=== PATIENT | male | born 1960 | race Asian ===

== ENCOUNTER 2017-12-07 15:49 | Inpatient (IN) | payer OTHER ==
[~2017-12-07] VITALS: Ht 162.6 cm; Wt 63.2 kg
[2017-12-07] MEDS ORDERED: IBUPROFEN 600 MG TAB PO STA (16:44)
--- NOTE | 2017-12-07 16:59 | Diagnostic Imaging Report ---
EXAMINATION: CXR 2 VIEW - HOPD INDICATION: Fluid in lung COMPARISON: None FINDINGS: TUBES and LINES: None. LUNGS: Opacity in the right lung adjacent to pleural effusion, likely atelectasis. The left lung is clear. PLEURA: There is a large right pleural effusion. Nio evidence of pneumothorax. HEART AND MEDIASTINUM: The cardiomediastinal silhouette is unremarkable. BONES AND SOFT TISSUES: No acute osseous lesion. Soft tissues are unremarkable. UPPER ABDOMEN: No free air under the diaphragm. Air filled non-specific small and large bowel loops. IMPRESSION: Large right pleural effusion with associated opacity, likely atelectasis. Follow-up chest radiograph to resolution is suggested. Signed by: Dr. Bandar Bliss MD on 12/07/2017 4:56 PM
--- NOTE | 2017-12-07 18:18 | Diagnostic Imaging Report ---
EXAMINATION: CT scan of the chest with contrast. TECHNIQUE: Helical CT images of the chest were performed from the lung apices to the level of the adrenal glands after the intravenous administration of 100 cc of Isovue 300. Coronal and sagittal reformatted images were obtained.Dose modulation, iterative reconstruction, and/or weight based adjustment of the mA/kV was utilized to reduce the radiation dose to as low as reasonably achievable. COMPARISON: None. CLINICAL HISTORY:Shortness of breath DISCUSSION: LINES/TUBES: None. LUNGS AND AIRWAYS: Right compressive atelectasis PLEURA: Large right pleural effusion. HEART AND MEDIASTINUM: The thyroid gland is normal. The heart and pericardium are within normal limits. LYMPH NODES: There is no mediastinal, hilar or axillary lymphadenopathy. ABDOMEN: Simple cyst right peripheral lobe measuring 1.2 cm. Additional smaller hypodensities. BONES AND SOFT TISSUES: No acute bony abnormalities. IMPRESSION: Large right pleural effusion with adjacent atelectasis. Signed by: Dr. Kingston Us M.D. on 12/07/2017 6:15 PM
[2017-12-07] MEDS ORDERED: SODIUM CHLORIDE FLUSH 10 ML SYR INJ PRN (18:45)
[2017-12-07] MEDS ORDERED: MORPHINE SULFATE 2 MG/ML SYR IV PRN (18:45)
[2017-12-07] MEDS ORDERED: ONDANSETRON HCL INJ 2 MG/ML VIAL IV PRN (18:45)
[2017-12-07] MEDS ORDERED: CEFTRIAXONE SOD 1 GM VIAL IV ONE (20:00)
[2017-12-07] MEDS ORDERED: CEFTRIAXONE SOD 1 GM VIAL IM ONE (20:00)
[2017-12-07 21:13] VITALS: BP 121/69
[2017-12-07 21:14] VITALS: BP 121/69
[2017-12-07] MEDS ORDERED: SODIUM CHLORIDE 0.9% 250ML 250 ML ONE (21:40)
[2017-12-07] MEDS: CEFEPIME HCL 1 GM VIAL IV SCH ×2 (21:49→21:53)
[2017-12-07] MEDS: VANCOMYCIN 1GM/NS 250 ML 250 ML IV SCH (21:49)
[2017-12-07 22:47] VITALS: BP 121/69
[2017-12-08] VITALS (7 sets, daily range): BP systolic 116–150; BP diastolic 74–80
[2017-12-08] MEDS: CEFEPIME HCL 1 GM VIAL IV SCH ×3 (05:55→22:30)
[2017-12-08 05:57] LABS: BASOPHILS # (AUTO) 0.1 (0.0-0.1); BASOPHILS % 0.4 % (0.0-1.0); EOSINOPHILS # (AUTO) 0.2 (0.0-0.4); EOSINOPHILS % 1.5 % (0.0-6.0); HEMATOCRIT 37.1 % (38.2-49.6); HEMOGLOBIN 12.5 g/dL (14.0-18.0); LYMPHOCYTES # (AUTO) 0.9 (1.0-3.2); LYMPHOCYTES % 5.6 % (18.0-39.1); MEAN CORPUSCULAR HEMOGLOBIN 30.3 pg (28-32); MEAN CORPUSCULAR HGB CONC 33.7 g/dL (31-35); MEAN CORPUSCULAR VOLUME 89.8 fL (81-99); MONOCYTES # (AUTO) 1.6 (0.2-0.8); MONOCYTES % 9.8 % (4.4-11.3); NEUTROPHILS # (AUTO) 13.1 (2.1-6.9); NEUTROPHILS % 81.9 % (38.7-80.0); PLATELET COUNT 355 x10e3/uL (140-360); RED BLOOD COUNT 4.13 x10e6/uL (4.3-5.7)
[2017-12-08 06:19] LABS: ANION GAP 13.8 mmol/L (8-16); BLOOD UREA NITROGEN 14 mg/dL (7-26); BUN/CREATININE RATIO 17 (6-25); CALCIUM 8.6 mg/dL (8.4-10.2); CARBON DIOXIDE 22 mmol/L (22-29); CHLORIDE 108 mmol/L (98-107); CREATININE, SERUM 0.82 mg/dL (0.72-1.25); EST GLOMERULAR FILTRATION RATE > 60 ML/MIN (60-); GLUCOSE 155 mg/dL (74-118); POTASSIUM 3.8 mmol/L (3.5-5.1); SODIUM 140 mmol/L (136-145)
[2017-12-08 06:26] LABS: INR 1.09; PROTHROMBIN TIME 15.1 seconds (11.9-14.5)
[2017-12-08 06:27] LABS: PARTIAL THROMBOPLASTIN TIME 45.5 seconds (23.8-35.5)
[2017-12-08] MEDS ORDERED: CEFTRIAXONE SOD 1 GM VIAL IV SCH ×2 (08:45→09:00)
[2017-12-08] MEDS ORDERED: VANCOMYCIN HCL 1GM/NS 250 ML BAG IV SCH (09:00)
[2017-12-08] MEDS: VANCOMYCIN 1GM/NS 250 ML 250 ML IV SCH ×2 (09:26→19:41)
--- NOTE | 2017-12-08 09:59 | Consultation ---
DATE OF CONSULTATION: PULMONARY CRITICAL CARE CONSULTATION CHIEF COMPLAINT: Fever, congestion and abnormal x-ray. HISTORY OF PRESENT ILLNESS: The patient is a 57-year-old man. 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 He is originally from the [facility], but for the last 4 months he has been working on a ship in [employer]. The ship travels from [place] to [facility] and to the [place]. As far as he knows, does not dock in any other ports. 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 Over the past 2-3 weeks, he has noticed some fevers. He has increased congestion and some cough. He notes some mild dyspnea. He does not complain of chest pain or weight loss. He is not having any abdominal pain. He denies any nausea or vomiting. PAST SURGICAL HISTORY: The patient denies any prior surgical history. PAST MEDICAL HISTORY 1. Patient denies any prior history of pneumonia or respiratory problems. 2. The patient denies any prior history of cardiac problems. 3. He denies any prior history of exposure to tuberculosis. As far as he knows, he has never been tested for tuberculosis. SOCIAL HISTORY: The patient never smoked. He is not a drinker. He denies any exposure history. No one else on the ship has been sick. ALLERGIES: THERE ARE NO KNOWN DRUG ALLERGIES. REVIEW OF SYSTEMS: There is some fevers. He does not have headache or neck pain. He has no sore throat. There is no swollen glands. He does not complain of any chest pain. He does note some cough and congestion. He is not having any abdominal pain. He denies any leg pain or swelling. He denies any rashes. PHYSICAL EXAMINATION VITALS: The patient is afebrile. Saturation is 90% on room air. The blood pressure is 138/74 and the pulse is 77. HEENT: Shows no facial swelling or erythema. The nasal mucosa is normal. The oropharynx is normal. LYMPHATIC: Shows no submandibular, cervical or supraclavicular adenopathy. CARDIAC: Reveals a regular rate and rhythm with a normal S1 and S2. LUNGS: Auscultation of the lungs reveals decreased breath sounds on the right side. ABDOMEN: Soft and nontender. There is no rebound or guarding. EXTREMITIES: Showed shows no leg edema or calf tenderness. SKIN: Shows no rashes. NEUROLOGIC: Shows no focal abnormalities. RADIOGRAPHIC DATA: The chest CT shows a large right pleural effusion with adjacent atelectasis. IMPRESSIONS: Community-acquired pneumonia with parapneumonic effusion. PLAN 1. The patient will be treated with antibiotics for community-acquired pneumonia. 2. Ultrasound-guided thoracentesis with analysis for any empyema or spread of infection. 3. Urine antigen for legionella. 4. Blood cultures and sputum culture. 5. Continue to monitor electrolytes and white blood cell count. 6. Continue to investigate history for any additional exposures. Job#: [id number] RI
[2017-12-08] MEDS: ACETAMINOPHEN 325 MG TAB PO PRN ×2 (10:20→23:45)
[2017-12-08] MEDS: AZITHROMYCIN 500MG/NS 250 ML 250 ML IV SCH (11:29)
--- NOTE | 2017-12-08 14:51 | Diagnostic Imaging Report ---
Procedure: Ultrasound-guided right diagnostic and therapeutic thoracentesis bow making machine operator: Dr. Bandar Bliss Pre-operative diagnosis: Right pleural effusion Post-operative diagnosis: Right pleural effusion Local sedation: 10 cc of 1% subcutaneous lidocaine Estimated blood loss: Minimal Specimens: 500 cc cloudy serous pleural fluid Implants: None DISCUSSION: Informed consent was obtained from the patient and documented in the medical record. The patient was placed in the left lateral decubitus position. The right posterior chest was prepped and draped in standard sterile fashion. 1% lidocaine was infiltrated into the skin and subcutaneous tissues for local anesthesia. Then under sonographic guidance, a 5 Fr catheter was advanced into the right pleural space. The catheter was advanced off the needle and connected to vacuum bottle with subsequent evacuation of 500 cc of cloudy serous fluid. The catheter was removed and a sterile, occlusive dressing was applied. Sample was sent to the lab. The patient tolerated the procedure well. FINDINGS: Moderate right pleural effusion with some septations, suggesting complexity. IMPRESSION: Ultrasound-guided right thoracentesis with evacuation of 500 cc of cloudy serous fluid. Signed by: Dr. Bandar Bliss MD on 12/08/2017 2:47 PM
--- NOTE | 2017-12-08 14:51 | Diagnostic Imaging Report ---
Procedure: Ultrasound-guided right diagnostic and therapeutic thoracentesis component prep operator: Dr. Bandar Bliss Pre-operative diagnosis: Right pleural effusion Post-operative diagnosis: Right pleural effusion Local sedation: 10 cc of 1% subcutaneous lidocaine Estimated blood loss: Minimal Specimens: 500 cc cloudy serous pleural fluid Implants: None DISCUSSION: Informed consent was obtained from the patient and documented in the medical record. The patient was placed in the left lateral decubitus position. The right posterior chest was prepped and draped in standard sterile fashion. 1% lidocaine was infiltrated into the skin and subcutaneous tissues for local anesthesia. Then under sonographic guidance, a 5 Fr catheter was advanced into the right pleural space. The catheter was advanced off the needle and connected to vacuum bottle with subsequent evacuation of 500 cc of cloudy serous fluid. The catheter was removed and a sterile, occlusive dressing was applied. Sample was sent to the lab. The patient tolerated the procedure well. FINDINGS: Moderate right pleural effusion with some septations, suggesting complexity. IMPRESSION: Ultrasound-guided right thoracentesis with evacuation of 500 cc of cloudy serous fluid. Signed by: Dr. Bandar Bliss MD on 12/08/2017 2:47 PM
[2017-12-08 15:25] LABS: BODY FLUID APPEARANCE CLOUDY; BODY FLUID COLOR RED; BODY FLUID TYPE PLEURAL
[2017-12-08 15:26] LABS: RBC,BODY FLUID 1436 cells/uL; WBC,BODY FLUID 174 cells/uL
--- NOTE | 2017-12-08 15:30 | Diagnostic Imaging Report ---
EXAMINATION: CHEST SINGLE (PORTABLE) INDICATION: \S\post thoracentesis \S\[id number] \S\1445 \S\N COMPARISON: Chest radiograph 12/07/[address] chest 12/07/2017 FINDINGS: AP view TUBES and LINES: None. LUNGS: Lungs are well inflated. Interval thoracentesis with decreased size of the right pleural effusion, now small. Unchanged right lower lobe consolidation likely due to atelectasis when compared to prior CT. PLEURA: No pleural effusion or pneumothorax. HEART AND MEDIASTINUM: The cardiomediastinal silhouette is unremarkable.. BONES AND SOFT TISSUES: No acute osseous lesion. Soft tissues are unremarkable. UPPER ABDOMEN: No free air under the diaphragm. IMPRESSION: Interval thoracentesis with decrease size now small of the right pleural effusion. No pneumothorax. Signed by: Dr. Loli Hitchcock M.D. on 12/08/2017 3:26 PM
[2017-12-08 16:07] LABS: EOSINOPHILS,BODY FLUID 4 %; LYMPHOCYTES,BODY FLUID 15 %; MONO/MACROPHG,BODY FLUID 9 %; NEUTROPHILS,BODY FLUID 72 %
[2017-12-08] MEDS ORDERED: MORPHINE SULFATE INJ 4 MG/ML INJ IV PRN (16:30)
[2017-12-08] MEDS: FAMOTIDINE 20 MG/2 ML VIAL IV SCH (17:10)
--- NOTE | 2017-12-08 17:42 | History and Physical ---
CHIEF COMPLAINT: Shortness of breath and cough, right back pain. 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 Now developing shortness of breath and right-sided back pain with cough since November 23 of this year. Symptoms have worsened progressively and now shortness of breath has worsened to the point where he is having significant difficulty breathing. He also has subjective fever. He is brought to urgent care facility and found to have right pleural effusion and was sent to the hospital here for further evaluation and management. He underwent a thoracentesis and he feels better. He is less short of breath. He has no history of pneumonia and no history of any similar pathology. PAST MEDICAL HISTORY: Cigarette use, quitting about 3 years ago. PAST SURGICAL HISTORY: None. ALLERGIES: PER ELECTRONIC MEDICAL RECORDS. FAMILY, SOCIAL HISTORY: The patient is . He has 3 children. He cigarettes about 3 years ago. No alcohol or illicits. 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 MEDICATIONS: Per electronic medical records. REVIEW OF SYSTEMS: Denies any dizziness or chest pain. He denies any nausea, vomiting or diarrhea. Denies any headache or back pain at this time. Denies any leg pain. PHYSICAL EXAMINATION VITAL SIGNS: Reviewed. GENERAL APPEARANCE: A tired-appearing man resting in the bed. HEENT: Anicteric. Pupils responsive to light. No oral lesions. CARDIOVASCULAR: Normal S1 and S2. LUNGS: Reduced breath sounds in the right lung, minimal crackles. He has left lung with good breath sounds. ABDOMEN: Soft and nontender. Nondistended. EXTREMITIES: There is no edema or calf tenderness. NEUROLOGIC: Alert and oriented x3. Moving all extremities. SKIN: Dry. PSYCHIATRIC: Normal affect. LABS: Reviewed. MEDICATIONS: Reviewed. ASSESSMENT: This is a 57-year-old man. 1. Sepsis. 2. Right pleural effusion, status post thoracentesis. 3. Normocytic anemia. 4. History of cigarette use. PLAN: 1. He is status post thoracentesis. Will follow up. 2. Continue with antibiotics. He is on vancomycin, cefepime and Azithromycin. 3. Possible discharge tomorrow with antibiotics, but he can be transitioned to his hometown and follow up cultures and studies of the pleural fluid. 4. Will use Pepcid for GI prophylaxis and SCDs for deep venous thrombosis prophylaxis. 5. Will follow up pleural fluid studies. Job#: [id number] NEMO
[2017-12-09 00:29] VITALS: BP 145/78
[2017-12-09 06:15] LABS: BASOPHILS # (AUTO) 0.1 (0.0-0.1); BASOPHILS % 0.4 % (0.0-1.0); EOSINOPHILS # (AUTO) 0.2 (0.0-0.4); EOSINOPHILS % 1.4 % (0.0-6.0); HEMATOCRIT 37.7 % (38.2-49.6); HEMOGLOBIN 12.7 g/dL (14.0-18.0); LYMPHOCYTES # (AUTO) 1.6 (1.0-3.2); LYMPHOCYTES % 11.2 % (18.0-39.1); MEAN CORPUSCULAR HEMOGLOBIN 30.1 pg (28-32); MEAN CORPUSCULAR HGB CONC 33.7 g/dL (31-35); MEAN CORPUSCULAR VOLUME 89.3 fL (81-99); MONOCYTES # (AUTO) 1.7 (0.2-0.8); MONOCYTES % 11.6 % (4.4-11.3); NEUTROPHILS # (AUTO) 10.9 (2.1-6.9); NEUTROPHILS % 74.6 % (38.7-80.0); PLATELET COUNT 361 x10e3/uL (140-360); RED BLOOD COUNT 4.22 x10e6/uL (4.3-5.7); RED CELL DISTRIBUTION WIDTH 11.9 % (11.7-14.4)
[2017-12-09 06:38] LABS: ALANINE AMINOTRANSFERASE 101 IU/L (0-55); ALBUMIN 2.4 g/dL (3.5-5.0); ALBUMIN/GLOBULIN RATIO 0.6 (0.8-2.0); ALKALINE PHOSPHATASE 105 IU/L (40-150); ANION GAP 15.8 mmol/L (8-16); BLOOD UREA NITROGEN 11 mg/dL (7-26); BUN/CREATININE RATIO 13 (6-25); CARBON DIOXIDE 22 mmol/L (22-29); CHLORIDE 107 mmol/L (98-107); CREATININE, SERUM 0.88 mg/dL (0.72-1.25); EST GLOMERULAR FILTRATION RATE > 60 ML/MIN (60-); GLUCOSE 109 mg/dL (74-118); POTASSIUM 3.8 mmol/L (3.5-5.1); SODIUM 141 mmol/L (136-145)
[2017-12-09 08:00] VITALS: BP 133/86
[2017-12-09 08:10] VITALS: BP 133/86
[2017-12-09] MEDS: ACETAMINOPHEN 325 MG TAB PO PRN ×2 (08:38→15:59)
[2017-12-09] MEDS: FAMOTIDINE 20 MG/2 ML VIAL IV SCH ×2 (08:38→17:35)
[2017-12-09] MEDS: AZITHROMYCIN 500MG/NS 250 ML 250 ML IV SCH (08:38)
[2017-12-09] MEDS: VANCOMYCIN 1GM/NS 250 ML 250 ML IV SCH ×2 (09:00→21:30)
[2017-12-09] MEDS: CEFEPIME HCL 1 GM VIAL IV SCH ×2 (11:00→23:00)
[2017-12-09 12:47] VITALS: BP 116/79
[2017-12-09 17:03] VITALS: BP 147/87
[2017-12-09 20:00] VITALS: BP 133/74
[2017-12-09] MEDS ORDERED: SODIUM CHLORIDE 0.9% 250ML 250 ML ONE (20:02)
[2017-12-09] MEDS ORDERED: SODIUM CHLORIDE 0.9% 50ML 50 ML ONE (23:39)
[2017-12-10] VITALS (7 sets, daily range): BP systolic 122–156; BP diastolic 72–95
[2017-12-10] MEDS: ACETAMINOPHEN 325 MG TAB PO PRN ×3 (00:10→18:08)
[2017-12-10 06:14] LABS: BASOPHILS # (AUTO) 0.1 (0.0-0.1); BASOPHILS % 0.7 % (0.0-1.0); EOSINOPHILS # (AUTO) 0.3 (0.0-0.4); EOSINOPHILS % 1.8 % (0.0-6.0); HEMATOCRIT 35.9 % (38.2-49.6); HEMOGLOBIN 12.1 g/dL (14.0-18.0); LYMPHOCYTES # (AUTO) 1.6 (1.0-3.2); LYMPHOCYTES % 11.5 % (18.0-39.1); MEAN CORPUSCULAR HEMOGLOBIN 29.8 pg (28-32); MEAN CORPUSCULAR HGB CONC 33.7 g/dL (31-35); MEAN CORPUSCULAR VOLUME 88.4 fL (81-99); MONOCYTES # (AUTO) 1.4 (0.2-0.8); MONOCYTES % 10.5 % (4.4-11.3); NEUTROPHILS # (AUTO) 10.2 (2.1-6.9); NEUTROPHILS % 74.6 % (38.7-80.0); PLATELET COUNT 365 x10e3/uL (140-360); RED BLOOD COUNT 4.06 x10e6/uL (4.3-5.7); RED CELL DISTRIBUTION WIDTH 12.1 % (11.7-14.4)
[2017-12-10 06:45] LABS: ALANINE AMINOTRANSFERASE 101 IU/L (0-55); ALBUMIN 2.3 g/dL (3.5-5.0); ALBUMIN/GLOBULIN RATIO 0.6 (0.8-2.0); ALKALINE PHOSPHATASE 119 IU/L (40-150); ANION GAP 16.2 mmol/L (8-16); BLOOD UREA NITROGEN 8 mg/dL (7-26); BUN/CREATININE RATIO 9 (6-25); CALCIUM 8.9 mg/dL (8.4-10.2); CARBON DIOXIDE 23 mmol/L (22-29); CHLORIDE 106 mmol/L (98-107); CREATININE, SERUM 0.88 mg/dL (0.72-1.25); EST GLOMERULAR FILTRATION RATE > 60 ML/MIN (60-); GLUCOSE 108 mg/dL (74-118); POTASSIUM 4.2 mmol/L (3.5-5.1); SODIUM 141 mmol/L (136-145)
--- NOTE | 2017-12-10 06:59 | Progress Note ---
DATE: December 09, 2017 TIME: 8:00 a.m. OVERNIGHT: Feeling little better. REVIEW OF SYSTEMS: Denies any dizziness or chest pain. PHYSICAL EXAMINATION VITAL SIGNS: Reviewed. GENERAL: A tired-appearing man, resting in bed. HEENT: Anicteric. CARDIOVASCULAR: Normal S1 and S2. LUNGS: He has good aeration. Minimal crackles at the bases. ABDOMEN: Soft and nontender. EXTREMITIES: No edema. SKIN: Dry. PSYCHIATRIC: Normal affect. LABS: Reviewed. MEDICATIONS: Reviewed. ASSESSMENT: A 57-year-old man with: 1. Sepsis. 2. Right-sided exudative effusion, status post thoracentesis. 3. Normocytic anemia. 4. History of cigarette use. PLAN 1. Continue broad-spectrum antibiotics. 2. Light's criteria reveals patient has underlying exudative effusion. 3. Followup cultures and continue broad-spectrum antibiotics. 4. I have discussed case with Dr. Still. Plan is to repeat CT scan on Monday and observe for any fevers or leukocytosis. 5. Check TSH and PSA. 6. We doubt patient has TB. 7. We will continue with treatment and follow up. Job#: [id number] VAS
[2017-12-10] MEDS: AZITHROMYCIN 500MG/NS 250 ML 250 ML IV SCH (08:50)
[2017-12-10] MEDS: FAMOTIDINE 20 MG/2 ML VIAL IV SCH ×2 (08:51→16:57)
[2017-12-10] MEDS: VANCOMYCIN 1GM/NS 250 ML 250 ML IV SCH ×2 (10:55→21:16)
[2017-12-10] MEDS: CEFEPIME HCL 1 GM VIAL IV SCH ×2 (10:55→22:51)
--- NOTE | 2017-12-10 13:32 | Progress Note ---
DATE: December 10, 2017 TIME: 12:00 noon. OVERNIGHT: No acute events. Febrile episode noted overnight. REVIEW OF SYSTEMS: Patient denies dizziness, fever, chills, sweats, nausea, vomiting, diarrhea, constipation, leg pain, or blurry vision. Reports right-sided chest pain with deep inspiration without shortness of breath. Reports nonproductive cough. PHYSICAL EXAMINATION VITAL SIGNS: Temperature 98.9, pulse 77, R 16, BP 156/95, SpO2 95% to 92% on room air. GENERAL APPEARANCE: This is a tired-appearing man, sitting on the side of bed. HEENT: Normocephalic, pale ocular mucosa, nares patent, trachea midline. CV: S1 and S2 without extra cardiac sounds. LUNGS: Bilateral breath sounds clear with scant diminishment at right middle lobe. Mild crackles noted posterior bases. ABDOMEN: Soft, not tender, not distended. EXTREMITIES: Without edema. SKIN: Dry. PSYCHIATRIC: Normal affect. LABS: WBCs this a.m. are 13.71, H and H 12.1/35.9, platelets 365. Na 141, K 4.2, Cl 106, CO2 of 23, gap 16.2, BUN 8 and creatinine , GFR greater than 16. Followup blood cultures are pending. MEDICATIONS 1. P.r.n. Tylenol. 2. Vancomycin IV 1 gram b.i.d. 3. Cefepime 1 gram q.12 hours IV. 4. IV Pepcid 20 mg. 5. IV azithromycin q.24 hours. 6. P.r.n. morphine sulfate. 7. P.r.n. Zofran. ASSESSMENT AND PLAN: This is a 57-year-old man with: 1. Sepsis. Continue broad-spectrum antibiotics. 2. Right-sided exudative effusion, status post thoracentesis on 12/08/2017 with removal of approximately 500 mL of cloudy fluid. Repeat CT scan planned for Monday per notes. Continue to monitor and treat with IV antibiotics as the patient did have a fever episode overnight with continued leukocytosis. 3. Normocytic anemia. Follow up values in a.m. 4. History of cigarette abuse. Outpatient counseling. 5. Prophylaxis, Pepcid. Patient able to ambulate. DISPOSITION: As above. Continue IV antibiotics and supportive care. TSH 1.28 with PSA pending. Investigate results of urine legionella test. Dictated by: Charu Sin NP Job#: [id number] ADOLFO
[2017-12-10] MEDS ORDERED: SODIUM CHLORIDE 0.9% 50ML 50 ML ONE (22:10)
[2017-12-11] VITALS (7 sets, daily range): BP systolic 119–146; BP diastolic 69–89
[2017-12-11] MEDS: ACETAMINOPHEN 325 MG TAB PO PRN ×2 (00:28→09:55)
[2017-12-11 06:00] LABS: BASOPHILS # (AUTO) 0.1 (0.0-0.1); BASOPHILS % 0.6 % (0.0-1.0); EOSINOPHILS # (AUTO) 0.4 (0.0-0.4); EOSINOPHILS % 2.5 % (0.0-6.0); HEMATOCRIT 35.9 % (38.2-49.6); HEMOGLOBIN 12.2 g/dL (14.0-18.0); LYMPHOCYTES # (AUTO) 1.5 (1.0-3.2); LYMPHOCYTES % 11.1 % (18.0-39.1); MEAN CORPUSCULAR HEMOGLOBIN 29.9 pg (28-32); MONOCYTES # (AUTO) 1.6 (0.2-0.8); MONOCYTES % 11.2 % (4.4-11.3); NEUTROPHILS # (AUTO) 10.2 (2.1-6.9); NEUTROPHILS % 73.9 % (38.7-80.0); PLATELET COUNT 392 x10e3/uL (140-360); RED BLOOD COUNT 4.08 x10e6/uL (4.3-5.7)
[2017-12-11 06:28] LABS: ALANINE AMINOTRANSFERASE 112 IU/L (0-55); ALBUMIN 2.3 g/dL (3.5-5.0); ALBUMIN/GLOBULIN RATIO 0.6 (0.8-2.0); ALKALINE PHOSPHATASE 130 IU/L (40-150); ANION GAP 14.3 mmol/L (8-16); BLOOD UREA NITROGEN 7 mg/dL (7-26); BUN/CREATININE RATIO 8 (6-25); CALCIUM 9.1 mg/dL (8.4-10.2); CARBON DIOXIDE 24 mmol/L (22-29); CHLORIDE 106 mmol/L (98-107); CREATININE, SERUM 0.89 mg/dL (0.72-1.25); EST GLOMERULAR FILTRATION RATE > 60 ML/MIN (60-); GLUCOSE 108 mg/dL (74-118); POTASSIUM 4.3 mmol/L (3.5-5.1); SODIUM 140 mmol/L (136-145)
--- NOTE | 2017-12-11 07:32 | Diagnostic Imaging Report ---
PROCEDURE: X-RAY CHEST, TWO VIEWS COMPARISON: 12/08/2017, CT scan of the chest 12/07/2017. INDICATIONS: SOB, EFFUSION FINDINGS: Interval increase in size of now moderate right pleural effusion with probable passive atelectasis of the lower and middle lobes. Left lung remains clear. Cardiomediastinal contour is notable for prominence of the azygos venous interface shown to represent loculation of paramediastinal pleural fluid on the comparison CT scan of the chest are no overt pulmonary edema. No acute osseous abnormality. CONCLUSION: Interval reaccumulation of now moderate right pleural effusion relative to post thoracentesis chest radiograph 12/08/2017. Dictated by: Brant Richardson M.D. on 12/11/2017 at 7:41 Electronically approved by: Brant Richardson M.D. on 12/11/2017 at 7:41
[2017-12-11] MEDS: FAMOTIDINE 20 MG/2 ML VIAL IV SCH ×2 (09:55→18:24)
[2017-12-11] MEDS: AZITHROMYCIN 500MG/NS 250 ML 250 ML IV SCH (09:55)
[2017-12-11] MEDS: CEFEPIME HCL 1 GM VIAL IV SCH ×2 (09:55→21:11)
[2017-12-11] MEDS ORDERED: VANCOMYCIN 1GM/NS 250 ML 250 ML IV SCH (10:00)
[2017-12-11 11:02] LABS: EOSINOPHILS % (MANUAL) 2 % (0-7); LYMPHOCYTES % (MANUAL) 13 % (19-48); MONOCYTES % (MANUAL) 9 % (3.4-9.0); NEUTROPHILS % (MANUAL) 76 % (40-74)
[2017-12-11 11:03] LABS: ANISOCYTOSIS SLIGHT; PLATELET ESTIMATE SLIGHTLY INCREASED; PLATELET MORPHOLOGY COMMENT NORMAL; RBC MORPHOLOGY COMMENT NORMAL
[2017-12-11] MEDS ORDERED: SODIUM CHLORIDE 0.9% IV SCH (11:15)
[2017-12-11] MEDS ORDERED: VANCOMYCIN HCL IV SCH (11:15)
[2017-12-11] MEDS: VANCOMYCIN HCL 1.5 GM in SODIUM CHLORIDE 0.9% 250ML 300 ML IV SCH ×2 (11:45→23:15)
[2017-12-11 16:22] LABS: BODY FLUID TYPE PLEURAL
[2017-12-11 16:23] LABS: BODY FLUID APPEARANCE CLOUDY; BODY FLUID COLOR STRAW
--- NOTE | 2017-12-11 16:44 | Diagnostic Imaging Report ---
Examination: Single AP view of the chest. COMPARISON: Chest radiograph 12/11/2017 INDICATION: Status post thoracentesis DISCUSSION: See impression IMPRESSION: 1. Interval right thoracentesis with minimal decrease in size of multiloculated right pleural effusion. No pneumothorax. 2. Persistent multifocal pneumonia in the right lung. Signed by: Dr. Brant Richardson M.D. on 12/11/2017 4:41 PM
--- NOTE | 2017-12-11 16:47 | Diagnostic Imaging Report ---
Date and Time: Procedure: Ultrasound-guided right thoracentesis hardboard coating machine operator: Dr. Richardson Pre-operative diagnosis: Right pleural effusion Post-operative diagnosis: Multiloculated right pleural effusion Conscious Sedation: None The patient's heart rate and pulse oximetry were continuously monitored by the interventional radiology nurse. Blood pressure was monitored at 5 minute intervals. Additional Medications: Lidocaine 1% for local anesthesia Fluoroscopy time: 0 Dose-area Product: 0 mGycm2. Frontal Air Kerma: 0 Contrast used: 0 Estimated blood loss: Minimal Specimens: 50 cc serous fluid Implants: None DISCUSSION: Informed consent was obtained and documented in the medical record. Patient was placed in the left lateral decubitus position. The right chest wall was prepped and draped in standard sterile fashion. A suitable percutaneous approach to the multiloculated right pleural effusion was identified and 1% lidocaine was infiltrated into the skin and subcutaneous tissues for local anesthesia. Then under continuous sonographic guidance, a 5 [place] Fur and Maskeh needle catheter was advanced into the pleural space. The needle was removed and the catheter was connected to vacuum bottle with subsequent aspiration of 50 cc lainey-colored fluid. The needle was removed and a final sonographic image was obtained. A sterile dressing was applied. The patient tolerated the procedure well without immediate complication. FINDINGS: Multiloculated parapneumonic right pleural effusion. IMPRESSION: Successful ultrasound-guided diagnostic right thoracentesis with evacuation of 50 cc lainey-colored fluid. Specimen was submitted for laboratory analysis as requested by the referring clinical team. Aspirated fluid was not frankly purulent, arguing against presence of empyema. Postprocedure chest radiograph was requested. Signed by: Dr. Brant Richardson M.D. on 12/11/2017 4:44 PM
[2017-12-11 17:32] LABS: RBC,BODY FLUID 6014 cells/uL; WBC,BODY FLUID 173 cells/uL
[2017-12-11 17:36] LABS: LYMPHOCYTES,BODY FLUID 6 %; MONO/MACROPHG,BODY FLUID 1 %; NEUTROPHILS,BODY FLUID 93 %
[2017-12-12] VITALS (8 sets, daily range): BP systolic 114–147; BP diastolic 73–90
[2017-12-12 05:10] LABS: BASOPHILS # (AUTO) 0.1 (0.0-0.1); BASOPHILS % 0.7 % (0.0-1.0); EOSINOPHILS # (AUTO) 0.4 (0.0-0.4); HEMATOCRIT 38.3 % (38.2-49.6); HEMOGLOBIN 12.7 g/dL (14.0-18.0); LYMPHOCYTES # (AUTO) 1.7 (1.0-3.2); LYMPHOCYTES % 13.3 % (18.0-39.1); MEAN CORPUSCULAR HEMOGLOBIN 29.8 pg (28-32); MEAN CORPUSCULAR HGB CONC 33.2 g/dL (31-35); MEAN CORPUSCULAR VOLUME 89.9 fL (81-99); MONOCYTES # (AUTO) 1.3 (0.2-0.8); MONOCYTES % 10.1 % (4.4-11.3); NEUTROPHILS # (AUTO) 9.5 (2.1-6.9); NEUTROPHILS % 72.1 % (38.7-80.0); PLATELET COUNT 458 x10e3/uL (140-360); RED BLOOD COUNT 4.26 x10e6/uL (4.3-5.7); RED CELL DISTRIBUTION WIDTH 12.1 % (11.7-14.4)
[2017-12-12 05:43] LABS: ALANINE AMINOTRANSFERASE 191 IU/L (0-55); ALBUMIN 2.3 g/dL (3.5-5.0); ALBUMIN/GLOBULIN RATIO 0.6 (0.8-2.0); ALKALINE PHOSPHATASE 173 IU/L (40-150); ANION GAP 16.2 mmol/L (8-16); BLOOD UREA NITROGEN 7 mg/dL (7-26); BUN/CREATININE RATIO 7 (6-25); CALCIUM 9.1 mg/dL (8.4-10.2); CARBON DIOXIDE 24 mmol/L (22-29); CHLORIDE 104 mmol/L (98-107); CREATININE, SERUM 0.95 mg/dL (0.72-1.25); EST GLOMERULAR FILTRATION RATE > 60 ML/MIN (60-); GLUCOSE 104 mg/dL (74-118); POTASSIUM 4.2 mmol/L (3.5-5.1); SODIUM 140 mmol/L (136-145)
[2017-12-12] MEDS ORDERED: SODIUM CHLORIDE 0.9% 250ML 250 ML ONE (08:24)
[2017-12-12] MEDS: AZITHROMYCIN 500MG/NS 250 ML 250 ML IV SCH (08:31)
[2017-12-12] MEDS: FAMOTIDINE 20 MG/2 ML VIAL IV SCH ×2 (08:31→16:41)
[2017-12-12] MEDS: CEFEPIME HCL 1 GM VIAL IV SCH ×2 (09:43→22:00)
[2017-12-12] MEDS: ACETAMINOPHEN 325 MG TAB PO PRN (09:53)
[2017-12-12] MEDS: VANCOMYCIN HCL 1.5 GM in SODIUM CHLORIDE 0.9% 250ML 300 ML IV SCH ×3 (11:15)
--- OUTSIDE RECORDS SUMMARY | 2017-12-12 13:14 | XMS REPORT ---
[facility] Address Unknown Phone Unavailable Care Team Providers Care Inspecting Machine Adjuster Name Role Phone CHACORTA DE DIOS Unavailable Unavailable Problems This patient has no known problems. Allergies, Adverse Reactions, Alerts This patient has no known allergies or adverse reactions. Medications This patient has no known medications. Results Test Description Test Time Test Comments Text Results Atomic Results Result Comments THORACENTESIS/US GUIDED 2017-12-11 16:41:00 [place] [address] Patient Name: TALON COBB MR #: [id number] : 1960 Age/Sex: 57/M Req #: [id number] Adm Physician: CHACORTA DE DIOS MD Ordered by: CHACORTA DE DIOS MD Report #: [id number] Location: [facility] Room/Bed: [facility] Procedure: [id number] US/THORACENTESIS/US GUIDED Exam Date: Exam Time: REPORT STATUS: Signed Date and Time: Procedure: Ultrasound-guided right thoracentesis acid wash operator: Dr. Mcintosh Pre-operative diagnosis: Right pleural effusion Post-operative diagnosis: Multiloculated right pleural effusion Conscious Sedation: None The patient's heart rate and pulse oximetry were continuously monitored by the interventional radiology nurse. Blood pressure was monitored at 5 minute intervals. Additional Medications: Lidocaine 1% for local anesthesia Fluoroscopy time: 0 Dose- area Product: 0 mGycm2. Frontal Air Kerma: 0 Contrast used: 0 Estimated blood loss: Minimal Specimens: 50 cc serous fluid Implants: None DISCUSSION: Informed consent was obtained and documented in the medical record. Patient was placed in the left lateral decubitus position. The r [facility] chest wall was prepped and draped in standard sterile fashion. A suitable percutaneous approach to the multiloculated right pleural effusion was identified and 1% lidocaine was infiltrated into the skin and subcutaneous tissues for local anesthesia. Then under continuous sonographic guidance, a 5 [employer] needle catheter was advanced into the pleural space. The needle was removed and the catheter was connected to vacuum bottle with subsequent aspiration of 50 cc lainey-colored fluid. The needle was removed and a final sonographic image was obtained. A sterile dressing was applied. The patient tolerated the procedure well without immediate complication. FINDINGS: Multiloculated parapneumonic right pleural effusion. IMPRESSION: Successful ultrasound-guided diagnostic right thoracentesis with evacuation of 50 cc lainey-colored fluid. Specimen was submitted for laboratory analysis as requested by the referring clinical team. Aspirated fluid was not frankly purulent, arguing against presence of empyema. Postprocedure chest radiograph was requested. Signed by: Dr. Cookie Mcintosh M.D. on 12/11/2017 4:44 PM Dictated By: COOKIE MCINTOSH MD 43 Transcribed By: MARIO on 12/11/171643 COPY TO: CHACORTA DE DIOS MD CHEST XRAY POST PROCEDURE 2017-12-11 16:40:00 [place] [address] Patient Name: TALON COBB MR #: [id number] : 1960 Age/Sex: 57/M Req #: [id number] Adm Physician: CHACORTA DE DIOS MD Ordered by: COOKIE MCINTOSH MD Report #: [id number] Location: MED/SURG3 Room/Bed: [facility] Procedure: [id number] DX/CHEST XRAY POST PROCEDURE Exam Date: Exam Time: REPORT STATUS: Signed Examination: Single AP view of the chest. COMPARISON: Chest radiograph 12/11/2017 INDICATION: Status post thoracentesis DISCUSSION: See impression IMPRESSION: 1. Interval right thoracentesis with minimal decrease in size of multiloculated right pleural effusion. No pneumothorax. 2. Persistent multifocal pneumonia in the right lung. Signed by: Dr. Cookie Mcintosh M.D. on 12/11/2017 4:41 PM Dictated By: COOKIE MCINTOSH MD 40 Transcribed By: MARIO on 12/11/171640 COPY TO: COOKIE MCINTOSH MD CHEST 2 VIEWS 2017-12-11 07:41:00 [place] [address] Patient Name: TALON COBB MR #: [id number] : 1960 Age/Sex: 57/M Req #: [id number] Adm Physician: CHACORTA DE DIOS MD Ordered by: BENJI BIRCH MD Report #: [id number] Location: [facility] Room/Bed: [facility] Procedure: [id number] DX/CHEST 2 VIEWS Exam Date: Exam Time: REPORT STATUS: Signed PROCEDURE: X-RAY CHEST, TWO VIEWS COMPARISON: 12/08/2017, CT scan of the chest 12/07/2017. INDICATIONS: SOB, EFFUSION FINDINGS: Interval increase in size of now moderate right pleural effusion with probable passive atelectasis of the lower and middle lobes. Left lung remains clear. Cardiomediastinal contour is notable for prominence of the azygos venous interface shown to represent loculation of paramediastinal pleural fluid on the comparison CT scan of the chest are no overt pulmonary edema. No acute osseous abnormality. CONCLUSION: Interval reaccumulation of now moderate right pleural effusion relative to post thoracentesis chest radiograph 12/08/2017. Dictated by: Cookie Mcintosh M.D. on 12/11/2017 at 7:41 Electronically approved by: Cookie Mcintosh M.D. on 12/11/2017 at 7:41 Dictated By: COOKIE MCINTOSH MD 0 Transcribed By: JUDY on 12/11/17740 COPY TO: BENJI BIRCH MD CHEST SINGLE (PORTABLE) 2017-12-08 15:25:00 [place] [address] Patient Name: TALON COBB MR #: [id number] : 1960 Age/Sex: 57/M Req #: [id number] Adm Physician: CHACORTA DE DIOS MD Ordered by: CHACORTA DE DIOS MD Report #: [id number] Location: [facility] Room/Bed: [facility] Procedure: [id number] DX/CHEST SINGLE (PORTABLE) Exam Date: 12/08/17 Exam Time: 1445 REPORT STATUS: Signed EXAMINATION: CHEST SINGLE (PORTABLE) INDICATION: COMPARISON: Chest radiograph 12/07/[address] chest 12/07/2017 FINDINGS: AP view TUBES and LINES: None. LUNGS: Lungs are well inflated. Interval thoracentesis with decreased size of the right pleural effusion, now small. Unchanged right lower lobe consolidation likely due to atelectasis when compared to prior CT. PLEURA: No pleural effusion or pneumothorax. HEART AND MEDIASTINUM: The cardiomediastinal silhouette is unremarkable.. BONES AND SOFT TISSUES: No acute osseous lesion. Soft tissues are unremarkable. UPPER ABDOMEN: No free air under the diaphragm. IMPRESSION: Interval thoracentesis with decrease size now small of the right pleural effu alexx. No pneumothorax. Signed by: Dr. Carlos Can M.D. on 12/08/2017 3:26 PM Dictated By: CARLOS CAN MD 25 Transcribed By: MARIO on 12/08/171525 COPY TO: CHACORTA DE DIOS MD IR CONSULT 2017-12-08 14:43:00 [place] [address] Patient Name: TALON COBB MR #: [id number] : 1960 Age/Sex: 57/M Req #: [id number] Adm Physician: CHACORTA DE DIOS MD Ordered by: NALDO MANRIQUEZ MD Report #: [id number] Location: MED/SURG3 Room/Bed: [facility] Procedure: [id number] DX/IR CONSULT Exam Date: Exam Time: REPORT STATUS: Signed Procedure: Ultrasound-guided right diagnostic and therapeutic thoracentesis acid wash operator: Dr. Libby Welch Pre-operative diagnosis: Right pleural effusion Post-operative diagnosis: Right pleural effusion Local sedation: 10 cc of 1% subcutaneous lidocaine Estimated blood loss: Minimal Specimens: 500 cc cloudy serous pleural fluid Implants: None DISCUSSION: Informed consent was obtained from the patient and documented in the medical record. The patient was placed in the left lateral decubitus position. The right posterior chest was prepped and draped in standard sterile fashion. 1% lidocaine was infiltrated into the skin and subcutaneous tissues for local anesthesia. Then under sonographic guidance, a 5 Fr catheter was advanced into the right pleural space. The catheter was adva nced off the needle and connected to vacuum bottle with subsequent evacuation of 500 cc of cloudy serous fluid. The catheter was removed and a sterile, occlusive dressing was applied. Sample was sent to the lab. The patient tolerated the procedure well. FINDINGS: Moderate right pleural effusion with some septations, suggesting complexity. IMPRESSION: Ultrasound- guided right thoracentesis with evacuation of 500 cc of cloudy serous fluid. Signed by: Dr. Libby Welch MD on 12/08/2017 2:47 PM Dictated By: LIBBY WELCH MD 1447 Transcribed By: MARIO on 12/08/17 1447 COPY TO: NALDO MANRIQUEZ MD THORACENTESIS/US GUIDED 2017-12-08 14:43:00 [place] [address] Patient Name: TALON COBB MR #: [id number] : 1960 Age/Sex: 57/M Req #: [id number] Adm Physician: CHACORTA DE DIOS MD Ordered by: NALDO MANRIQUEZ MD Report #: [id number] Location: MED/SURG3 Room/Bed: [facility] Procedure: [id number] US/THORACENTESIS/US GUIDED Exam Date: 12/08/17 Exam Time: 1250 REPORT STATUS: Signed Procedure: Ultrasound-guided right diagnostic and therapeutic thoracentesis acid wash operator: Dr. Libby Welch Pre-operative diagnosis: Right pleural effusion Post-operative diagnosis: Right pleural effusion Local sedation: 10 cc of 1% subcutaneous lidocaine Estimated blood loss: Minimal Specimens: 500 cc cloudy serous pleural fluid Implants: None DISCUSSION: Informed consent was obtained from the patient and documented in the medical record. The patient was placed in the left lateral decubitus position. The right posterior chest was prepped and draped in standard sterile fashion. 1% lidocaine was infiltrated into the skin and subcutaneous tissues for local anesthesia. Then under sonographic guidance, a 5 Fr catheter was advanced into the right pleural space. The catheter was advanced off the needle and connected to vacuum bottle with subsequent evacuation of 500 cc of cloudy serous fluid. The catheter was removed and a sterile, occlusive dressing was applied. Sample was sent to the lab. The patient tolerated the procedure well. FINDINGS: Moderate right pleural effusion with some septations, suggesting complexity. IMPRESSION: Ultrasound-guided right thoracentesis with evacuation of 500 cc of cloudy serous fluid. Signed by: Dr. Libby Welch MD on 12/08/2017 2:47 PM Dictated By: LIBBY WELCH MD 1447 Transcribed By: MARIO on 12/08/17 144 COPY TO: NALDO MANRIQUEZ MD CT CHEST WITH CONTRAST-[facility] 2017-12-07 18:10:00 [place] [address] Patient Name: TALON COBB MR #: [id number] : 1960 Age/Sex: 57/M Req #: [id number] Adm Physician: Ordered by: NALDO MANRIQUEZ MD Report #: [id number] Location: [facility] Room/Bed: Procedure: [id number] [facility] Exam Date: 12/07/17 Exam Time: 1752 REPORT STATUS: Signed EXAMINATION: CT scan of the chest with contrast. TECHNIQUE: Helical CT images of the chest were performed from the lung apices to the level of the adrenal glands after the intravenous administration of 100 cc of Isovue 300. Coronal and sagittal reformatted images were obtained.Dose modulation, iterative reconstruction, and/or weight based adjustment of the mA/kV was utilized to reduce the radiation dose to as low as reasonably achievable. COMPARISON: None. CLINICAL HISTORY:Shortness of breath DISCUSSION: LINES/TUBES: None. LUNGS AND AIRWAYS: Right compressive atelectasis PLEURA: Large right pleural effusion. HEART AND MEDIASTINUM: The thyroid gland is normal. The heart and pericardium are within normal limits. LYMPH NODES: There is no mediastinal, hilar or axillary lymphadenopathy. ABDOMEN: Simple cyst right peripheral lobe measuring 1.2 cm. Additional smaller hypodensities. BONES AND SOFT TISSUES: No acute bony abnormalities. IMPRESSION: Large right pleural effusion with adjacent atelectasis. Signed by: Dr. Ingrid Tamez M.D. on 12/07/2017 6:15 PM Dictated By: INGRID TAMEZ MD 14 Transcribed By: MARIO on 12/07/171814 COPY TO: NALDO MANRIQUEZ MD CXR 2 VIEW - [facility] 2017-12-07 16:53:00 [place] [address] Patient Name: TALON COBB MR #: [id number] : 1960 Age/Sex: 57/M Req #: [id number] Adm Physician: Ordered by: NALDO MANRIQUEZ MD Report #: [id number] Location: [facility] Room/Bed: Procedure: [id number] HOPD/CXR 2 VIEW - [facility] Exam Date: 12/07/17 Exam Time: 1642 REPORT STATUS: Signed EXAMINATION: CXR 2 VIEW - [facility] INDICATION: Fluid in lung COMPARISON: None FINDINGS: TUBES and LINES: None. LUNGS: Opacity in the right lung adjacent to pleural effusion, likely atelectasis. The left lung is clear. PLEURA: There is a large right pleural effusion. Nio evidence of pneumothorax. HEART AND MEDIASTINUM: The cardiomediastinal silhouette is unremarkable. BONES AND SOFT TISSUES: No acute osseous lesion. Soft tissues are unremarkable. UPPER ABDOMEN: No free air under the diaphragm. Air filled non-specific small and large bowel loops. IMPRESSION: Large right pleural effusion with associated opacity, likely atelectasis. Follow-up chest radiograph to resolution is suggested. Signed by: Dr. Libby Welch MD on 12/07/2017 4:56 PM Dictated By: LIBBY WELCH MD 55 Transcribed By: MARIO on 12/07/171655 COPY TO: NALDO MANRIQUEZ MD
[2017-12-12] MEDS ORDERED: SODIUM CHLORIDE 0.9% 250ML 250 ML IV ONE (16:30)
[2017-12-13] VITALS (27 sets, daily range): BP systolic 101–127; BP diastolic 56–79
[2017-12-13 07:00] LABS: BASOPHILS # (AUTO) 0.1 (0.0-0.1); BASOPHILS % 0.7 % (0.0-1.0); EOSINOPHILS # (AUTO) 0.3 (0.0-0.4); EOSINOPHILS % 2.4 % (0.0-6.0); HEMATOCRIT 38.4 % (38.2-49.6); HEMOGLOBIN 12.9 g/dL (14.0-18.0); LYMPHOCYTES # (AUTO) 1.9 (1.0-3.2); LYMPHOCYTES % 14.9 % (18.0-39.1); MEAN CORPUSCULAR HEMOGLOBIN 30.1 pg (28-32); MEAN CORPUSCULAR HGB CONC 33.6 g/dL (31-35); MEAN CORPUSCULAR VOLUME 89.7 fL (81-99); MONOCYTES # (AUTO) 1.3 (0.2-0.8); MONOCYTES % 10.2 % (4.4-11.3); NEUTROPHILS # (AUTO) 8.8 (2.1-6.9); NEUTROPHILS % 70.8 % (38.7-80.0); PLATELET COUNT 501 x10e3/uL (140-360); RED BLOOD COUNT 4.28 x10e6/uL (4.3-5.7); RED CELL DISTRIBUTION WIDTH 12.1 % (11.7-14.4)
[2017-12-13 07:20] LABS: ALANINE AMINOTRANSFERASE 189 IU/L (0-55); ALBUMIN 2.5 g/dL (3.5-5.0); ALBUMIN/GLOBULIN RATIO 0.5 (0.8-2.0); ALKALINE PHOSPHATASE 208 IU/L (40-150); ANION GAP 18.9 mmol/L (8-16); BLOOD UREA NITROGEN 9 mg/dL (7-26); BUN/CREATININE RATIO 9 (6-25); CALCIUM 9.4 mg/dL (8.4-10.2); CARBON DIOXIDE 22 mmol/L (22-29); CHLORIDE 103 mmol/L (98-107); CREATININE, SERUM 0.98 mg/dL (0.72-1.25); EST GLOMERULAR FILTRATION RATE > 60 ML/MIN (60-); GLUCOSE 107 mg/dL (74-118); POTASSIUM 3.9 mmol/L (3.5-5.1); SODIUM 140 mmol/L (136-145)
[2017-12-13] MEDS: AZITHROMYCIN 500MG/NS 250 ML 250 ML IV SCH (08:16)
[2017-12-13] MEDS: FAMOTIDINE 20 MG/2 ML VIAL IV SCH ×2 (08:16→17:00)
[2017-12-13] MEDS: CEFEPIME HCL 1 GM VIAL IV SCH ×2 (09:55→21:30)
[2017-12-13] MEDS: VANCOMYCIN HCL 1.5 GM in SODIUM CHLORIDE 0.9% 250ML 300 ML IV SCH (12:20)
[2017-12-13] MEDS ORDERED: HEPARIN SOD/SOD CHLORIDE 1,000 ML ONE (13:01)
[2017-12-13] MEDS ORDERED: BACITRACIN 50,000 UNIT VIAL ONE (16:04)
[2017-12-13] MEDS ORDERED: BUPIVACAINE HCL 0.5% INJ 30 ML VIAL INJ ONE (16:19)
[2017-12-13] MEDS ORDERED: MUPIROCIN 2% OINT 22 GM TUBE ONE (16:50)
[2017-12-13 17:59] LABS: BASOPHILS # (AUTO) 0.1 (0.0-0.1); BASOPHILS % 0.6 % (0.0-1.0); EOSINOPHILS # (AUTO) 0.1 (0.0-0.4); EOSINOPHILS % 0.5 % (0.0-6.0); HEMATOCRIT 34.7 % (38.2-49.6); HEMOGLOBIN 11.4 g/dL (14.0-18.0); LYMPHOCYTES % 6.1 % (18.0-39.1); MEAN CORPUSCULAR HEMOGLOBIN 29.8 pg (28-32); MEAN CORPUSCULAR HGB CONC 32.9 g/dL (31-35); MEAN CORPUSCULAR VOLUME 90.8 fL (81-99); MONOCYTES # (AUTO) 0.6 (0.2-0.8); MONOCYTES % 3.8 % (4.4-11.3); NEUTROPHILS # (AUTO) 14.7 (2.1-6.9); NEUTROPHILS % 87.8 % (38.7-80.0); PLATELET COUNT 503 x10e3/uL (140-360); RED BLOOD COUNT 3.82 x10e6/uL (4.3-5.7); RED CELL DISTRIBUTION WIDTH 12.1 % (11.7-14.4)
[2017-12-13] MEDS ORDERED: MIDAZOLAM HCL 2 MG/2 ML VIAL ONE (18:06)
[2017-12-13] MEDS ORDERED: FENTANYL CITRATE/PF 100MCG/2 ML INJ ONE (18:06)
--- NOTE | 2017-12-13 18:18 | Diagnostic Imaging Report ---
EXAMINATION: CHEST SINGLE (PORTABLE) INDICATION: Post op/chest tube placement. ^post op cxr after chest tube placement ^[id number] ^1740 ^Y COMPARISON: Chest radiograph 12/11/2017 FINDINGS: AP view TUBES and LINES: Interval placement of 2 right-sided chest tubes. LUNGS: Lungs are well inflated. Right basilar opacity. PLEURA: Decreased loculated right pleural effusion, currently small. No left pleural effusion. A small amount of lucency in the right pleural space likely representing a component of hydropneumothorax related to chest tube placement. No left pneumothorax. HEART AND MEDIASTINUM: The cardiomediastinal silhouette is unremarkable. BONES AND SOFT TISSUES: No acute osseous lesion. Small amount subcutaneous emphysema in the right chest wall likely related to chest tube placement. Soft tissues are unremarkable. UPPER ABDOMEN: No free air under the diaphragm. IMPRESSION: 1. Interval placement of two chest tubes in the right hemithorax. 2. Decreased loculated right pleural effusion, currently small. Small amount of air within the right pleural space likely related to chest tube placement and suggesting hydropneumothorax. 3. Small amount of subcutaneous emphysema on the right chest wall. 4. Persistent right basilar opacity likely representing atelectasis or pneumonia. Signed by: DR. Reg Sanchez MD on 12/13/2017 6:15 PM
[2017-12-13 18:29] LABS: ALANINE AMINOTRANSFERASE 162 IU/L (0-55); ALBUMIN 2.1 g/dL (3.5-5.0); ALBUMIN/GLOBULIN RATIO 0.6 (0.8-2.0); ALKALINE PHOSPHATASE 169 IU/L (40-150); ANION GAP 18.6 mmol/L (8-16); BLOOD UREA NITROGEN 10 mg/dL (7-26); BUN/CREATININE RATIO 12 (6-25); CALCIUM 8.5 mg/dL (8.4-10.2); CARBON DIOXIDE 18 mmol/L (22-29); CHLORIDE 105 mmol/L (98-107); CREATININE, SERUM 0.84 mg/dL (0.72-1.25); EST GLOMERULAR FILTRATION RATE > 60 ML/MIN (60-); GLUCOSE 131 mg/dL (74-118); POTASSIUM 4.6 mmol/L (3.5-5.1); SODIUM 137 mmol/L (136-145)
[2017-12-13] MEDS ORDERED: LABETALOL HCL 5 MG/ML 20ML VIAL IV PRN (19:15)
[2017-12-13 20:02] LABS: BODY FLUID APPEARANCE CLOUDY; BODY FLUID COLOR RED; BODY FLUID TYPE PLEURAL
[2017-12-13 20:05] LABS: RBC,BODY FLUID 23320 cells/uL; WBC,BODY FLUID 31 cells/uL
[2017-12-13 21:09] LABS: LYMPHOCYTES,BODY FLUID 17 %; MONO/MACROPHG,BODY FLUID 2 %; NEUTROPHILS,BODY FLUID 81 %
[2017-12-13] MEDS: SODIUM CHLORIDE 0.9% 1000ML 1,000 ML IV SCH (21:23)
[2017-12-13] MEDS: HYDROCODONE/APAP 5MG-325MG TAB PO PRN (21:34)
[2017-12-13] MEDS ORDERED: VANCOMYCIN 1GM/NS 250 ML 500 ML ONE (23:53)
[2017-12-14] VITALS (94 sets, daily range): BP systolic 85–145; BP diastolic 51–78
[2017-12-14] MEDS: SODIUM CHLORIDE 0.9% 1000ML 1,000 ML IV SCH (06:30)
[2017-12-14] MEDS: AZITHROMYCIN 500MG/NS 250 ML 250 ML IV SCH (07:40)
[2017-12-14] MEDS: FAMOTIDINE 20 MG/2 ML VIAL IV SCH ×2 (07:40→17:10)
[2017-12-14 08:17] LABS: BASOPHILS # (AUTO) 0.1 (0.0-0.1); BASOPHILS % 0.6 % (0.0-1.0); EOSINOPHILS # (AUTO) 0.1 (0.0-0.4); EOSINOPHILS % 0.4 % (0.0-6.0); HEMATOCRIT 35.3 % (38.2-49.6); HEMOGLOBIN 11.9 g/dL (14.0-18.0); LYMPHOCYTES # (AUTO) 1.7 (1.0-3.2); LYMPHOCYTES % 10.4 % (18.0-39.1); MEAN CORPUSCULAR HEMOGLOBIN 30.6 pg (28-32); MEAN CORPUSCULAR HGB CONC 33.7 g/dL (31-35); MEAN CORPUSCULAR VOLUME 90.7 fL (81-99); MONOCYTES # (AUTO) 1.4 (0.2-0.8); MONOCYTES % 8.9 % (4.4-11.3); NEUTROPHILS # (AUTO) 12.4 (2.1-6.9); NEUTROPHILS % 78.8 % (38.7-80.0); PLATELET COUNT 525 x10e3/uL (140-360); RED BLOOD COUNT 3.89 x10e6/uL (4.3-5.7); RED CELL DISTRIBUTION WIDTH 12.3 % (11.7-14.4)
--- NOTE | 2017-12-14 08:30 | Diagnostic Imaging Report ---
PROCEDURE: A single AP view of the chest. COMPARISON: Chest radiograph 12/13/2017 FINDINGS: AP view TUBES and LINES: Two right-sided chest tubes are in unchanged position. LUNGS: Low lung volumes. Persistent patchy right basilar opacity. Mild pulmonary vascular congestion. PLEURA: Small loculated right hydropneumothorax is unchanged. No left pleural effusion. No left pneumothorax. HEART AND MEDIASTINUM: The cardiomediastinal silhouette is unremarkable. BONES AND SOFT TISSUES: No acute osseous lesion. Small amount subcutaneous emphysema in the right chest wall likely related to chest tube placement. Soft tissues are unremarkable. UPPER ABDOMEN: No free air under the diaphragm. IMPRESSION: Right sided chest tubes in place with persistent small loculated right hydropneumothorax, unchanged. Persistent right basilar opacity likely representing atelectasis or pneumonia. Dictated by: LIBBY WELCH M.D. on 12/14/2017 at 8:38 Electronically approved by: LIBBY WELCH M.D. on 12/14/2017 at 8:38
[2017-12-14 08:46] LABS: ALANINE AMINOTRANSFERASE 143 IU/L (0-55); ALBUMIN 1.9 g/dL (3.5-5.0); ALBUMIN/GLOBULIN RATIO 0.5 (0.8-2.0); ALKALINE PHOSPHATASE 149 IU/L (40-150); ANION GAP 17.3 mmol/L (8-16); BLOOD UREA NITROGEN 11 mg/dL (7-26); BUN/CREATININE RATIO 13 (6-25); CALCIUM 8.3 mg/dL (8.4-10.2); CARBON DIOXIDE 19 mmol/L (22-29); CHLORIDE 104 mmol/L (98-107); CREATININE, SERUM 0.84 mg/dL (0.72-1.25); EST GLOMERULAR FILTRATION RATE > 60 ML/MIN (60-); GLUCOSE 103 mg/dL (74-118); POTASSIUM 4.3 mmol/L (3.5-5.1); SODIUM 136 mmol/L (136-145)
[2017-12-14] MEDS: MORPHINE SULFATE 2 MG/ML SYR IV PRN ×2 (09:32→15:50)
[2017-12-14] MEDS: CEFEPIME HCL 1 GM VIAL IV SCH ×2 (09:32→22:00)
[2017-12-14] MEDS: HYDROCODONE/APAP 5MG-325MG TAB PO PRN (11:23)
[2017-12-14] MEDS: ONDANSETRON HCL INJ 2 MG/ML VIAL IV PRN (11:28)
[2017-12-14] MEDS: VANCOMYCIN HCL 1.5 GM in SODIUM CHLORIDE 0.9% 250ML 300 ML IV SCH ×4 (11:30→23:15)
--- NOTE | 2017-12-14 13:35 | Progress Note ---
DATE: December 14, 2017 INTERNAL MEDICINE PROGRESS NOTE SUBJECTIVE: The patient is doing well, sitting in the bed with no issues. He does have a chest tube with output coming out. His vital signs are stable when I evaluated him. He is not eating a whole lot, and he does not like the food here. VITALS: Temperature is 97.9, pulse 70, respiratory rate 16, blood pressure 121/69. He is 100% on room air. LAB FINDINGS: White count 15.8, hemoglobin 11.9, hematocrit 35, and platelets 525. Coagulation: PT 15, INR 1, PTT 45. Chemistry: Sodium 136, potassium 4.3, chloride 104, bicarb 19, anion gap 17, BUN 11, creatinine 0.84, calcium 8.3. Bilirubin is 0.7, AST 67, ALT 143, alk phos 149, total protein 5.5, albumin 1.9. TSH is 1.2. His pleural fluid cultures are no growth to date. Blood cultures are negative. Gram stain: No growth. Still pending are several viral cultures and fungal cultures of his pleural fluid. IMAGING STUDIES: Chest x-ray this morning shows right chest tube in place with persistent small loculated right hydropneumothorax. Persistent right basilar opacity likely represents atelectasis or pneumonia. PHYSICAL EXAMINATION GENERAL: Not in acute distress. Alert and oriented times 3. Cooperative on exam. HEENT: Head is normocephalic and atraumatic. Eyes: Pupils are equal and reactive to light bilaterally. Extraocular movements are intact bilaterally. NECK: Supple. Good range of motion. THROAT: No evidence of any erythema or exudates in the posterior pharynx. Has poor dentition. PULMONARY: Clear to auscultation bilaterally. No wheezing. No rales. No rhonchi. No crackles appreciated. He has a chest tube on the right side of the chest wall. CARDIOVASCULAR: Positive S1, S2. No murmurs, rubs, or gallops appreciated. ABDOMEN: Soft, nondistended, nontender to palpation. Bowel sounds are present. MUSCULOSKELETAL: Strength is 5/5 throughout. No evidence of any musculoskeletal deficit on examination. No weakness appreciated. NEUROLOGIC: Cranial nerves II through XII are grossly intact. No evidence of any neurological deficit on exam. SKIN: Intact. Warm to touch. Good cap refill. PSYCHIATRIC: Normal affect and mood. EXTREMITIES: No edema. Good range of motion throughout. IMPRESSION 1. Sepsis secondary to underlying empyema, status post thoracotomy with chest tube. 2. Normocytic anemia. 3. History of smoking. 4. Low back pain likely secondary to decreased ambulation. PLAN: At this time, will continue with IV antibiotics in which pulmonary is following. Will get ID consult as well. CT surgery is also following as well for the chest tube. His cultures have been negative to date. We are going to resume all of his home medications that he is currently on. Continue same plan of care. Plan to hopefully have him ambulate soon once cleared by CT surgery. His pain is well controlled and tolerable. Otherwise, we will continue the same plan of care. Will continue to monitor very closely. I spent more than 35 minutes of critical care time on this case. Job#: [id number]
[2017-12-14] MEDS ORDERED: PROPOFOL IV EMULSION 10 MG/ML 20 ML VIAL ONE (17:10)
[2017-12-14] MEDS: ENOXAPARIN SOD INJ 40 MG/0.4 ML SYR SC SCH (17:10)
[2017-12-14] MEDS ORDERED: ROCURONIUM BROMIDE 10 MG/ML 5ML VIAL ONE (17:10)
[2017-12-14] MEDS ORDERED: LIDOCAINE HCL 2% LOCAL INJ 5 ML SDV VIAL INJ ONE (17:10)
[2017-12-14] MEDS ORDERED: ONDANSETRON HCL INJ 2 MG/ML VIAL ONE (17:10)
[2017-12-14] MEDS ORDERED: SEVOFLURANE INHAL SOLN 250 ML PEN BTL ONE (17:10)
[2017-12-14] MEDS ORDERED: DEXAMETHASONE SOD PHOS INJ 4 MG/ML VIAL ONE (17:10)
[2017-12-14] MEDS: ACETAMINOPHEN 325 MG TAB PO PRN (20:03)
[2017-12-15] VITALS (30 sets, daily range): BP systolic 98–149; BP diastolic 56–84
[2017-12-15 04:40] LABS: BASOPHILS # (AUTO) 0.1 (0.0-0.1); BASOPHILS % 0.7 % (0.0-1.0); EOSINOPHILS # (AUTO) 0.3 (0.0-0.4); EOSINOPHILS % 1.9 % (0.0-6.0); HEMATOCRIT 32.6 % (38.2-49.6); LYMPHOCYTES # (AUTO) 1.5 (1.0-3.2); LYMPHOCYTES % 11.1 % (18.0-39.1); MEAN CORPUSCULAR HEMOGLOBIN 30.1 pg (28-32); MEAN CORPUSCULAR HGB CONC 33.7 g/dL (31-35); MEAN CORPUSCULAR VOLUME 89.1 fL (81-99); MONOCYTES # (AUTO) 1.2 (0.2-0.8); NEUTROPHILS # (AUTO) 10.2 (2.1-6.9); NEUTROPHILS % 76.1 % (38.7-80.0); PLATELET COUNT 509 x10e3/uL (140-360); RED BLOOD COUNT 3.66 x10e6/uL (4.3-5.7); RED CELL DISTRIBUTION WIDTH 12.2 % (11.7-14.4)
[2017-12-15 05:05] LABS: ALANINE AMINOTRANSFERASE 128 IU/L (0-55); ALBUMIN 1.9 g/dL (3.5-5.0); ALBUMIN/GLOBULIN RATIO 0.5 (0.8-2.0); ALKALINE PHOSPHATASE 142 IU/L (40-150); ANION GAP 16.2 mmol/L (8-16); BLOOD UREA NITROGEN 10 mg/dL (7-26); BUN/CREATININE RATIO 13 (6-25); CALCIUM 8.5 mg/dL (8.4-10.2); CARBON DIOXIDE 22 mmol/L (22-29); CHLORIDE 103 mmol/L (98-107); EST GLOMERULAR FILTRATION RATE > 60 ML/MIN (60-); GLUCOSE 113 mg/dL (74-118); POTASSIUM 4.2 mmol/L (3.5-5.1); SODIUM 137 mmol/L (136-145)
--- NOTE | 2017-12-15 06:47 | Diagnostic Imaging Report ---
EXAMINATION: CHEST SINGLE (PORTABLE) INDICATION: Status post decortication of the right lung COMPARISON: 12/14/2017 and 12/13/2017 FINDINGS: TUBES and LINES: Right-sided chest tubes (2) are stable in position with tips at the right apex and right midlung LUNGS: Lungs are not well inflated. Interval increase in right lower lobe and right middle lobe atelectasis . PLEURA: Mild increase in right pleural effusion HEART AND MEDIASTINUM: The cardiomediastinal silhouette is unremarkable. BONES AND SOFT TISSUES: No acute osseous lesion. Soft tissues are unremarkable. UPPER ABDOMEN: No free air under the diaphragm. IMPRESSION: Mild interval increase in right pleural effusion and right lower lobe and middle lobe atelectasis status post decortication Signed by: Dr. Cuong Sidhu M.D. on 12/15/2017 6:43 AM
[2017-12-15] MEDS: FAMOTIDINE 20 MG/2 ML VIAL IV SCH ×2 (09:00→17:00)
[2017-12-15] MEDS: VANCOMYCIN HCL 1.5 GM in SODIUM CHLORIDE 0.9% 250ML 300 ML IV SCH (11:47)
--- NOTE | 2017-12-15 13:03 | Progress Note ---
DATE: December 15, 2017 INTERNAL MEDICINE PROGRESS NOTE SUBJECTIVE: Patient is doing tremendously well. He is sitting in a chair. He has no complaints at this time. VITALS SIGNS: Temperature is 100.3 and was 99.4 prior, will need to monitor that closely. His pulse is 63, respiratory rate is 16, blood pressure 146/72, and pulse ox 100% on room air. LAB FINDINGS: Show white count 13.3, hemoglobin 11, hematocrit is 33, and platelets of 509. Chemistry: Sodium 137, potassium 4.2, chloride 103, bicarb 22, anion gap of 16, BUN is 10, creatinine is 0.8, glucose is 113, calcium 8.5. Total bilirubin is 0.7, AST 53, ALT is 128, his alk phos is142, total albumin is 1.9. His cultures were reviewed. PHYSICAL EXAMINATION GENERAL: Not in acute distress, alert and oriented x3, cooperative on exam. HEENT: Head is normocephalic and atraumatic. Eyes: Pupils are equal and reactive to light bilaterally. Extraocular movements are intact bilaterally. Throat: No evidence of any erythema or exudates in the posterior pharynx. Has poor dentition. NECK: Supple with good range of motion. PULMONARY: Clear to auscultation bilaterally. No wheezing. No rales. No rhonchi. No crackles appreciated. CARDIOVASCULAR: Positive S1 and S2. No murmurs, rubs, or gallops appreciated. ABDOMEN: Soft, nondistended, nontender to palpation. Bowel sounds present. MUSCULOSKELETAL: Strength is 5/5 throughout. No evidence of any musculoskeletal deficit on examination. No weakness appreciated. NEUROLOGIC: Cranial nerves II through XII are grossly intact. No evidence of any neurological deficit on exam. SKIN: Intact. Warm to touch. Good cap refill. PSYCHIATRIC: Normal affect and mood. EXTREMITIES: No edema. Good range of motion throughout. IMPRESSION 1. Sepsis secondary to underlying empyema, status post thoracotomy with chest tube placement. 2. Normocytic anemia. 3. History of smoking. 4. Lower back pain secondary to decreased ambulation. PLAN: At this time, his back pain is improved. He is now sitting in a chair with no issues. We are going to continue with IV antibiotics as well. Omer will be removed. In relation to his chest tube, that will be up to the CT surgeon about when the time and day to remove that chest tube. Otherwise, we will continue the same plan of care. He is currently still in ICU and the process will be to transfer to the medical floor here today. Otherwise, he is doing well. Labs will be repeated in the morning. Labs were reviewed today. Job#: [id number] CARLIE
[2017-12-15] MEDS: MORPHINE SULFATE 2 MG/ML SYR IV PRN (19:45)
[2017-12-15] MEDS: ONDANSETRON HCL INJ 2 MG/ML VIAL IV PRN (19:45)
[2017-12-16] VITALS (8 sets, daily range): BP systolic 98–107; BP diastolic 52–73
[2017-12-16] MEDS: VANCOMYCIN HCL 1.5 GM in SODIUM CHLORIDE 0.9% 250ML 300 ML IV SCH ×3 (00:10→23:30)
[2017-12-16] MEDS: FAMOTIDINE 20 MG/2 ML VIAL IV SCH ×2 (08:49→17:30)
--- NOTE | 2017-12-16 13:34 | Progress Note ---
DATE: December 16, 2017 SUBJECTIVE: Patient is doing well today with no other complaints. He still has the right-sided chest tube and still has some drainage. So, I discussed with nursing staff and it seems that the surgeon wants to continue it through the weekend. He is otherwise doing well. VITALS SIGNS: Temperature is 98.5, pulse 64, respiratory rate is 20, blood pressure was 105/71, pulse ox is 92% on room air. LAB FINDINGS: Show white count 13.3, hemoglobin 11, hematocrit is 33, platelets of 509. Chemistry: Sodium 137, potassium 4.2, chloride 103, bicarb 22, anion gap of 16, BUN is 10, creatinine is 0.8. Albumin 1.9. MICROBIOLOGY: Still pending Gram stain of the chest pleural effusion fungal, but otherwise his body fluid culture was found to be negative. PHYSICAL EXAMINATION GENERAL: Not in acute distress, alert and oriented x3, cooperative on examination. HEENT: Head normocephalic, atraumatic. Eyes: Pupils are equal and reactive to light bilaterally. Extraocular movements intact bilaterally. Throat: No evidence of any erythema or exudates in the posterior pharynx. Has poor dentition. NECK: Supple with good range of motion. PULMONARY: Clear to auscultation bilaterally. No wheezing. No rales. No rhonchi. No crackles appreciated. CARDIOVASCULAR: Positive S1 and S2. No murmurs, rubs, or gallops appreciated. ABDOMEN: Soft, nondistended, nontender to palpation. Bowel sounds present. MUSCULOSKELETAL: Strength is 5/5 throughout. No evidence of any musculoskeletal deficit on examination. No weakness appreciated. NEUROLOGIC: Cranial nerves II through XII are grossly intact. No evidence of any neurological deficit on exam. SKIN: Intact. Warm to touch. Good cap refill. PSYCHIATRIC: Normal affect and mood. EXTREMITIES: No edema. Good range of motion throughout. IMPRESSION 1. Sepsis secondary to underlying empyema, status post thoracotomy with a chest tube still present. 2. Normocytic anemia. 3. History of smoking. 4. Lower back pain secondary to decreased ambulation, now improved. PLAN: At this time, per nursing staff, CT surgery wants to continue the chest tube through the weekend. Patient is doing well otherwise. Continue with IV antibiotics. Omer was removed and he is doing well, sitting in a chair. Continue same plan of care. We will get a.m. labs as well. Job#: [id number] ADOLFO
[2017-12-16] MEDS: ENOXAPARIN SOD INJ 40 MG/0.4 ML SYR SC SCH (17:30)
--- NOTE | 2017-12-16 22:03 | Operative Report ---
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 Empyema of right chest. 2. Trapped right lung. POSTOPERATIVE DIAGNOSES 1. Empyema of right chest. 2. Trapped right lung. TITLE OF OPERATION 1. Exploration of right chest. 2. Drainage of empyema (extensive). 3. Decortication of right lung. DESCRIPTION OF OPERATION: After the satisfactory accomplishment of general anesthesia with a double lumen endotracheal tube, the patient was placed in the left lateral decubitus position and the right chest was prepped and draped in sterile fashion. A small posterolateral thoracotomy incision was made and carried down through the muscles and fascia to enter the right chest in the 6th intercostal space. A large amount of gel substance was encountered and this thick substance was cultured and collected for investigation in the pathology laboratories. In addition, a fair amount of fluid was suctioned from within the right chest and sent for appropriate studies in the laboratories as well. The fluid was thick and yellow colored. There was no tessa pus found, but the entire process was significant and extensive. Once the material was removed from the pleural space, the trapped right lung was addressed. A thick pleural and parenchymal rind was carefully removed from the surface of the trapped right lung. All bleeding points were carefully cauterized or oversewn. Once the right lung was freed, the lung was inflated to ensure the lack of any further trapping. The lung was then deflated and two #36 [place] chest tubes were inserted into the right chest through separate stab incisions. The entire chest was then thoroughly and aggressively irrigated with saline antibiotic solution. The chest wall incision was then re-closed with interrupted #2 Vicryl pericostal sutures. The muscles and fascia of the chest wall were closed with running 0 Vicryl sutures. The subcutaneous tissues were closed with 2-0 Vicryl running sutures and the skin incision was closed with Monocryl subcuticular stitch. The patient tolerated the procedure well and was returned to the intensive care unit in good condition. Job#: [id number] VAS
[2017-12-17] VITALS (7 sets, daily range): BP systolic 98–122; BP diastolic 53–76
[2017-12-17] MEDS: FAMOTIDINE 20 MG/2 ML VIAL IV SCH ×2 (08:34→17:06)
[2017-12-17] MEDS: VANCOMYCIN HCL 1.5 GM in SODIUM CHLORIDE 0.9% 250ML 300 ML IV SCH ×2 (11:20→23:32)
--- NOTE | 2017-12-17 14:30 | Progress Note ---
DATE: December 17, 2017 SUBJECTIVE: Patient is doing well today with no other complaints. He still has a chest tube on the right side. He is tolerating diet well. He has minimal pain. VITAL SIGNS: Temperature is 98.1, pulse 67, respiratory rate is 16, blood pressure 111/70, pulse ox 92% on room air. LABS: None. IMAGING: None. MICROBIOLOGY: All his blood cultures found to be negative. Body fluid culture found to be negative. Gram-stain was negative. We still have fungal infection and AFB still pending. PHYSICAL EXAMINATION GENERAL: Not in acute distress, alert and oriented x3, cooperative on examination. HEENT: Head normocephalic, atraumatic. Eyes: Pupils equal, round, and reactive to light bilaterally. Extraocular movements intact bilaterally. NECK: Supple with good range of motion. THROAT: No evidence of any erythema or exudates in the posterior pharynx, has poor dentition. PULMONARY: Clear to auscultation bilaterally. No wheezing, no rales, no rhonchi, no crackles appreciated. CARDIOVASCULAR: Positive S1 and S2. No murmurs, rubs, or gallops appreciated. ABDOMEN: Soft, nondistended, nontender to palpation. Bowel sounds present. MUSCULOSKELETAL: Strength is 5/5 throughout. No evidence of any musculoskeletal deficit on examination. No weakness appreciated. NEUROLOGIC: Cranial nerves II through XII grossly intact. No evidence of any neurological deficit on exam. SKIN: Intact. Warm to touch. Good cap refill. PSYCHIATRIC: Normal affect and mood. EXTREMITIES: No edema. Good range of motion throughout. IMPRESSION 1. Sepsis secondary to underlying empyema, status post thoracotomy with chest tube still present. 2. Normocytic anemia. 3. History of smoking. 4. Lower back pain secondary to decreased ambulation, now improved. PLAN: At this time, he still has a chest tube in the right chest wall. We are going to await for removal of the chest tube. Pulmonary and CT surgery to follow up. Continue with IV antibiotics. Omer was removed. He is doing well and he is ambulating well. He is tolerating diet well and pain is well controlled. Job#: [id number] LPA
[2017-12-17] MEDS: ENOXAPARIN SOD INJ 40 MG/0.4 ML SYR SC SCH (17:06)
[2017-12-18] VITALS (8 sets, daily range): BP systolic 100–120; BP diastolic 56–73
[2017-12-18] MEDS: FAMOTIDINE 20 MG/2 ML VIAL IV SCH ×2 (09:00→17:00)
[2017-12-18 11:10] LABS: HEMATOCRIT 36.5 % (38.2-49.6); MEAN CORPUSCULAR HEMOGLOBIN 29.9 pg (28-32); MEAN CORPUSCULAR HGB CONC 32.9 g/dL (31-35); PLATELET COUNT 620 x10e3/uL (140-360); RED BLOOD COUNT 4.01 x10e6/uL (4.3-5.7); RED CELL DISTRIBUTION WIDTH 11.9 % (11.7-14.4)
[2017-12-18] MEDS: VANCOMYCIN HCL 1.5 GM in SODIUM CHLORIDE 0.9% 250ML 300 ML IV SCH ×2 (11:15→23:41)
--- NOTE | 2017-12-18 15:15 | Progress Note ---
DATE: December 18, 2017 MEDICINE PROGRESS NOTE TIME OF SERVICE: 2:25 p.m. SUBJECTIVE: Overnight remains with chest tube. REVIEW OF SYSTEMS: Denies any dizziness, chest pain. Denies any fever, chills, sweats, nausea, vomiting, diarrhea. VITAL SIGNS: Reviewed. PHYSICAL EXAMINATION GENERAL APPEARANCE: A tired-appearing man resting in bed. HEENT: Anicteric. CARDIOVASCULAR: Normal S1/S2. LUNGS: He has good breath sounds bilaterally. He has chest tube in place. ABDOMEN: Soft, nontender, nondistended. EXTREMITIES: No edema or calf tenderness. NEUROLOGICALLY: He is alert and oriented x3. He moves all extremities. SKIN: Dry. PSYCHIATRIC: Normal affect. LABS: Reviewed. MEDICATIONS: Reviewed. ASSESSMENT: This is a 57-year-old man. 1. Sepsis. 2. Right-sided exudative effusion status post thoracentesis and chest tube placement. 3. Normocytic anemia. 4. History of cigarette use. PLAN 1. Continue on antibiotics. His vancomycin trough is therapeutic at 13. 2. Cultures remain negative. 3. Patient remains afebrile, and leukocytosis has resolved. 4. Chest tube removal pending reduction in output. 5. Discussed the case with Dr. Still. Patient is improving. His white cell is improving. It is 11.48 today. Patient is in good spirits, and we will continue current care. Hope to remove the chest tube soon and transition patient out of the hospital soon. Job#: [id number] EV
[2017-12-18] MEDS: ENOXAPARIN SOD INJ 40 MG/0.4 ML SYR SC SCH (17:00)
[2017-12-19] VITALS (8 sets, daily range): BP systolic 91–129; BP diastolic 58–78
[2017-12-19] MEDS: FAMOTIDINE 20 MG/2 ML VIAL IV SCH ×2 (08:18→17:50)
--- NOTE | 2017-12-19 10:18 | Diagnostic Imaging Report ---
PROCEDURE: CT scan of the chest WITH intravenous contrast, using standard protocol. TECHNIQUE: The chest was scanned utilizing a multidetector helical scanner from the lung apex through the level of the adrenal glands after the IV administration of 100 cc of Isovue 370. Coronal and sagittal multiplanar reformations were obtained. COMPARISON: Chest CT 12/07/17. INDICATIONS: PLEURAL EFFUSION FINDINGS: Lines/tubes: Interval placement of two right sided chest tubes. One of the chest tubes terminates in the right upper pleural space posteriorly. An additional chest tube courses superiorly and terminates at the right apex. Lungs and Airways: Increased aeration of the right lung after right pleural effusion drainage. There is subsegmental atelectasis in the right middle lobe and right lower lobe. No new consolidation. Central airways are patent. Left lung is clear. There is a 2 mm subpleural nodular opacity in the right upper lobe on series 3, image 18. There is an additional 2 mm right upper lobe nodule in series 3, image 32. Pleura: Interval decrease in size of right sided pleural effusion, now a layering small effusion. No left effusion. No evidence of pneumothorax. Heart and mediastinum: The thyroid gland is normal. No significant mediastinal, hilar or axillary lymphadenopathy is seen. The heart and pericardium are within normal limits. Soft tissues: Small amount of subcutaneous gas at right chest tube insertion sites. Abdomen: Limited contrast-enhanced views of the upper abdomen show no abnormality within the visualized spleen or left kidney. There is a 1.2 cm simple right hepatic lobe cyst. Additional hypo densities are too small to characterize, but likely represent cysts. Bones: No acute bony findings. IMPRESSION: Interval placement of two right sided chest tubes with decreased right pleural effusion, now a small layering effusion. Interval decrease in atelectasis in the right lung. Dictated by: LIBBY WELCH M.D. on 12/19/2017 at 10:27 Electronically approved by: LIBBY WELCH M.D. on 12/19/2017 at 10:27
[2017-12-19] MEDS: VANCOMYCIN HCL 1.5 GM in SODIUM CHLORIDE 0.9% 250ML 300 ML IV SCH ×2 (11:15→22:55)
[2017-12-19] MEDS ORDERED: SODIUM CHLORIDE 0.9% 50ML 50 ML ONE (11:54)
[2017-12-19] MEDS ORDERED: IOPAMIDOL 370 MG/ML 200 ML INFUS..BTL INJ ONE (11:54)
[2017-12-19] MEDS: ENOXAPARIN SOD INJ 40 MG/0.4 ML SYR SC SCH (17:50)
[2017-12-20] VITALS (8 sets, daily range): BP systolic 92–112; BP diastolic 56–68
[2017-12-20] MEDS: FAMOTIDINE 20 MG/2 ML VIAL IV SCH ×2 (08:20→17:38)
[2017-12-20] MEDS: VANCOMYCIN HCL 1.5 GM in SODIUM CHLORIDE 0.9% 250ML 300 ML IV SCH ×2 (11:14→23:52)
[2017-12-20] MEDS: MORPHINE SULFATE 2 MG/ML SYR IV PRN (15:59)
[2017-12-20] MEDS: ENOXAPARIN SOD INJ 40 MG/0.4 ML SYR SC SCH (17:38)
[2017-12-21] VITALS (8 sets, daily range): BP systolic 103–112; BP diastolic 55–69
[2017-12-21] MEDS: VANCOMYCIN HCL 1.5 GM in SODIUM CHLORIDE 0.9% 250ML 300 ML IV SCH ×3 (00:10→14:04)
[2017-12-21 06:56] LABS: BASOPHILS # (AUTO) 0.2 (0.0-0.1); BASOPHILS % 1.5 % (0.0-1.0); EOSINOPHILS # (AUTO) 0.6 (0.0-0.4); EOSINOPHILS % 6.3 % (0.0-6.0); HEMATOCRIT 36.2 % (38.2-49.6); HEMOGLOBIN 11.7 g/dL (14.0-18.0); LYMPHOCYTES # (AUTO) 1.8 (1.0-3.2); LYMPHOCYTES % 18.6 % (18.0-39.1); MEAN CORPUSCULAR HGB CONC 32.3 g/dL (31-35); MEAN CORPUSCULAR VOLUME 92.8 fL (81-99); MONOCYTES # (AUTO) 0.7 (0.2-0.8); MONOCYTES % 6.9 % (4.4-11.3); NEUTROPHILS # (AUTO) 6.4 (2.1-6.9); NEUTROPHILS % 64.3 % (38.7-80.0); PLATELET COUNT 587 x10e3/uL (140-360); RED CELL DISTRIBUTION WIDTH 12.5 % (11.7-14.4)
--- NOTE | 2017-12-21 07:13 | Diagnostic Imaging Report ---
EXAM: XR CHEST 2 VIEWS DATE: 12/21/2017 7:00 AM INDICATION: Empyema/chest tube COMPARISON: 12/15/2017, no report available FINDINGS: Lines and Tubes: Right thoracostomy tube with tip overlying mid right lung. More superior thoracostomy tube removed. Heart and Mediastinum: No acute cardiomediastinal findings. Lungs and Pleura: Small right pleural effusion, improved with scattered airspace opacities right mid and lower lung. While evaluation is limited given positioning, no distinct pneumothorax is identified. Bones and Soft Tissues: No acute findings. IMPRESSION: 1. Removal one of 2 right thoracostomy tubes. 2. Residual small effusion with scattered opacities right mid/lower lung. Signed by: Dr. Toni Victoria MD on 12/21/2017 7:10 AM
[2017-12-21] MEDS: FAMOTIDINE 20 MG/2 ML VIAL IV SCH ×2 (10:00→17:13)
--- NOTE | 2017-12-21 16:19 | Diagnostic Imaging Report ---
EXAMINATION: CHEST 2 VIEWS INDICATION: ^Chest tube removal followup ^Y COMPARISON: Chest radiograph 12/21/2017 40 7:00 AM FINDINGS: PA and lateral views TUBES and LINES: Interval removal of right-sided chest tube. LUNGS: Lungs are well inflated. Subsegmental atelectasis in the right lower lobe is stable. There is no evidence of pneumonia or pulmonary edema. PLEURA: Unchanged small right pleural effusion. No new pneumothorax. HEART AND MEDIASTINUM: The cardiomediastinal silhouette is unremarkable. BONES AND SOFT TISSUES: No acute osseous lesion. Soft tissues are unremarkable. UPPER ABDOMEN: No free air under the diaphragm. IMPRESSION: Interval removal of a right thoracostomy tube without new pneumothorax. Stable small right pleural effusion. Signed by: Dr. Loli Hitchcock M.D. on 12/21/2017 4:16 PM
[2017-12-21] MEDS: ENOXAPARIN SOD INJ 40 MG/0.4 ML SYR SC SCH (16:30)
[2017-12-22 00:08] VITALS: BP 117/76
[2017-12-22 04:30] VITALS: BP 109/59
[2017-12-22] MEDS ORDERED: ACETAMINOP325 MG/10 PO (06:37)
[2017-12-22] MEDS ORDERED: TESSALON PERLE100 MG PO (06:37)
[2017-12-22 08:47] VITALS: BP 131/66
[2017-12-22] MEDS: ACETAMINOPHEN 325 MG TAB PO PRN (08:48)
[2017-12-22 10:05] VITALS: BP 131/66
[2017-12-22] MEDS ORDERED: CEFDINIR300 MG PO (12:57)
== END 2017-12-22 10:58 | disposition home or self-care (01) | DRG 853 ==
LOC: FSED 15:49 → ERHOLD 18:44 → MED/SURG3 20:40 → ICU 12-13 17:57 → MED/SURG 12-15 12:54
PROVIDERS: ADMIT Internal Medicine; ATTEND Internal Medicine
PROC: 0W993ZX Drainage of Right Pleural Cavity, Percutaneous Approach, Diagnostic (ICD-10-PCS; 2017-12-08)
PROC: 0BNK0ZZ Release Right Lung, Open Approach (ICD-10-PCS; principal; 2017-12-16)
PROC: 0W9900Z Drainage of Right Pleural Cavity with Drainage Device, Open Approach (ICD-10-PCS; 2017-12-16)
DX: A41.9 Sepsis, unspecified organism (principal); J18.9 Pneumonia, unspecified organism; J86.9 Pyothorax without fistula; J90 Pleural effusion, not elsewhere classified; Z87.891 Personal history of nicotine dependence; D64.9 Anemia, unspecified; M54.5 Low back pain; R09.1 Pleurisy
CPT/HCPCS: 32555; 36415; 71045; 71046; 71260; 74470; 80048; 80053; 80202; 82945; 83615; 84152; 84157; 84443; 85007; 85025; 85027; 85610; 85730; 86850; 86900; 86920; 87040; 87070; 87071; 87075; 87102; 87116; 87205; 87206; 87252; 87449; 88112; 88305; 89051; 93005; 96367; 96376; 97139; 99284; J0456; J0692; J1100; J1650; J2001; J2250; J2270; J2405; J3370; J7030; J7050; Q9967